=== PATIENT | female | born 1985 | race Caucasian/White ===

== ENCOUNTER 2020-02-22 04:25 | Day surgery (SDC) | payer OTHER ==
[2020-02-19 11:52] VITALS: BMI 22.0
[2020-02-22] MEDS ORDERED: MIDAZOLAM HCL 2 MG/2 ML SINGLE DOSE VIAL ONE (14:07)
[2020-02-22] MEDS ORDERED: DEXAMETHASONE SOD PHOSPHATE 4 MG/1 ML VIAL ONE (14:09)
[2020-02-22] MEDS ORDERED: KETOROLAC TROMETHAMINE 30 MG/1 ML VIAL ONE (14:09)
[2020-02-22] MEDS ORDERED: LIDOCAINE HCL/PF 2% SDV 5ML VIAL ONE (14:09)
[2020-02-22] MEDS ORDERED: PROPOFOL 20 ML ONE ×2 (14:09)
[2020-02-22] MEDS ORDERED: GLYCOPYRROLATE 0.2 MG/1 ML VIAL ONE (14:15)
[2020-02-22] MEDS ORDERED: IBUPROFEN 400 MG TABLET (FP) PO PRN (15:16)
[2020-02-22] MEDS ORDERED: ACETAMINOPHEN 325 MG TABLET (FP) PO PRN (15:16)
[2020-02-22] MEDS ORDERED: ONDANSETRON 4 MG/2 ML VIAL IVPUSH PRN (15:29)
[2020-02-22] MEDS ORDERED: oxyCODONE HCL 5 MG TABLET PO PRN ×2 (15:29)
[2020-02-22] MEDS ORDERED: LACTATED RINGERS SOLUTION 1,000 ML IV SCH (15:30)
[2020-02-22 18:31] VITALS: BP 110/81; PULSE 84; TEMP 98
[2020-02-23] MEDS ORDERED: ENOXAPARIN NA (PORCINE) 30 MG/0.3 ML DISP.SYRIN SQ SCH (10:00)
== END 2020-02-22 18:20 | disposition home or self-care (01) ==
LOC: JASU-SURG 04:25
PROVIDERS: ATTEND Obstetrics & Gynecology
PROC: 0UJD8ZZ Inspection of Uterus and Cervix, Via Natural or Artificial Opening Endoscopic (ICD-10-PCS; 2020-02-22)
PROC: 0UB97ZX Excision of Uterus, Via Natural or Artificial Opening, Diagnostic (ICD-10-PCS; principal; 2020-02-22 14:00)
PROC: 0UDB7ZX Extraction of Endometrium, Via Natural or Artificial Opening, Diagnostic (ICD-10-PCS; 2020-02-22 14:00)
DX: N92.0 Excessive and frequent menstruation with regular cycle (principal); N84.0 Polyp of corpus uteri
CPT/HCPCS: 36415; 84703; 86922; 88305-TC; 94760

== ENCOUNTER 2021-03-04 20:20 | Emergency (ER) | payer OTHER ==
[2021-03-04 20:26] VITALS: BP 118/78; TEMP 98; BMI 24.2
[2021-03-04] MEDS ORDERED: CEPHALEXIN MONOHYDRATE 500 MG CAPSULE (UD) PO ONE (22:28)
[2021-03-04 22:44] LABS: PH,URINE 6.5 (5.0-8.0); URINE APPEARANCE CLEAR; URINE BILIRUBIN NEGATIVE (NEGATIVE); URINE COLOR YELLOW; URINE GLUCOSE (UA) NEGATIVE (NEGATIVE); URINE KETONE NEGATIVE (NEGATIVE); URINE LEUK ESTERASE NEGATIVE (NEGATIVE); URINE NITRITE NEGATIVE (NEGATIVE); URINE PROTEIN NEGATIVE (NEGATIVE); URINE UROBILINOGEN 0.2 mg/dL (0.2-1.0)
[2021-03-04] MEDS ORDERED: CEPHALEXIN MONOHYDRATE 500 MG CAPSULE (UD) ONE (22:47)
[2021-03-04 23:30] VITALS: PULSE 68
== END 2021-03-04 23:31 | disposition home or self-care (01) ==
LOC: JER 20:20
DX: R30.0 Dysuria (principal)
CPT/HCPCS: 81003; 82962; 87077; 87086; 99283-25

== ENCOUNTER 2021-08-05 08:42 | Inpatient (IN) | payer BC, OTHER ==
[2021-08-05] MEDS: DEXTROSE 5%-LACTATED RINGERS 1,000 ML IV SCH (15:30)
[2021-08-05 15:50] VITALS: BMI 27.2
[2021-08-05 15:51] LABS: BASO % 0.4 % (0-2.0); HEMATOCRIT 39.4 % (32.4-45.2); HEMOGLOBIN 12.8 GM/dL (10.7-15.3); LYMPH % 7.3 % (8-40); MCH 28.1 pg (25.7-33.7); MCHC 32.5 g/dl (32.0-36.0); MEAN CELL VOLUME 86.4 fl (80-96); MEAN PLT VOLUME 10.6 fl (7.5-11.1); MONO % 4.7 % (3.8-10.2); NEUT % 87.6 % (42.8-82.8); PLATELET COUNT 162 10^3/uL (134-434); RBC 4.55 M/mm3 (3.60-5.2); RDW 13.7 % (11.6-15.6); WHITE BLOOD COUNT 11.7 K/mm3 (4.0-10.0)
[2021-08-05 15:58] LABS: INR 0.93 (0.83-1.09); PROTHROMBIN TIME (PATIENT) 10.7 SEC (9.7-13.0)
[2021-08-05] MEDS ORDERED: PENICILLIN G POTASSIUM 5,000,000 (5Mm) UNIT VIAL IVPB ONE (16:00)
[2021-08-05 16:01] LABS: ACTIVATED PTT 26.8 SECONDS (25.2-36.5)
[2021-08-05 16:08] LABS: CALCIUM 8.6 mg/dL (8.5-10.1)
[2021-08-05 16:09] LABS: BLOOD UREA NITROGEN 11.9 mg/dL (7-18)
[2021-08-05 16:12] LABS: CREATININE 0.8 mg/dL (0.55-1.3)
[2021-08-05] MEDS ORDERED: FENTANYL/BUPIVACAINE/NS/PF - PCEA - 50 ML DISP.SYRIN EP ONE ×2 (16:15→20:34)
[2021-08-05] MEDS: FENTANYL/BUPIVACAINE/NS/PF - PCEA - 50 ML DISP.SYRIN EP SCH ×2 (16:50→20:35)
[2021-08-05 17:03] LABS: HIV INTERPRETATION NEGATIVE (NEGATIVE)
[2021-08-05] MEDS ORDERED: NALOXONE HCL 0.4 MG/ML VIAL IVPUSH PRN (17:12)
[2021-08-05] MEDS: PENICILLIN G POTASSIUM 2,500,000 UNIT in SODIUM CHLORIDE 100 ML IVPB SCH (20:30)
[2021-08-05] MEDS ORDERED: ELECTROLYTE-148 SOLN 1,000 ML IV SCH (21:15)
[2021-08-05] MEDS ORDERED: OXYTOCIN 30 UNITS in 0.9% NS 30 UNIT/500 ML INFUS.BAG IVPB SCH (21:40)
[2021-08-05] MEDS ORDERED: ACETAMINOPHEN 325 MG TABLET (FP) PO ONE (22:55)
[2021-08-05] MEDS ORDERED: ACETAMINOPHEN 325 MG TABLET (FP) ONE (23:01)
[2021-08-05] MEDS ORDERED: OXYTOCIN 30 UNITS in 0.9% NS 30 UNIT/500 ML INFUS.BAG IVPB ONE (23:01)
[2021-08-06] MEDS ORDERED: OXYTOCIN 20 UNITS in 0.9% NS 20 UNIT/1,000 ML INFUS.BAG IV ONE (00:43)
[2021-08-06] MEDS ORDERED: FENTANYL/BUPIVACAINE/NS/PF - PCEA - 50 ML DISP.SYRIN EP ONE (00:43)
[2021-08-06] MEDS: PENICILLIN G POTASSIUM 2,500,000 UNIT in SODIUM CHLORIDE 100 ML IVPB SCH ×3 (04:00→07:55)
[2021-08-06] MEDS ORDERED: OXYTOCIN 20 UNITS in 0.9% NS 20 UNIT/1,000 ML INFUS.BAG IV SCH ×2 (04:20→04:45)
[2021-08-06] MEDS ORDERED: LIDOCAINE HCL 1% PRESERVATIVE FREE - 30ML VIAL ONE (04:22)
[2021-08-06] MEDS ORDERED: BISACODYL 10 MG SUPP.RECT RC PRN (04:36)
[2021-08-06] MEDS ORDERED: BENZOCAINE 20% 57 GM BOTTLE TP PRN (04:36)
[2021-08-06] MEDS ORDERED: oxyCODONE HCL 5 MG TABLET PO PRN (04:36)
[2021-08-06] MEDS ORDERED: WITCH HAZEL 50% (TUCKS) 40 PAD/JAR PAD TP PRN (04:36)
[2021-08-06] MEDS ORDERED: METHYLERGONOVINE MALEATE 0.2 MG/1 ML AMP IM PRN (04:36)
[2021-08-06] MEDS ORDERED: BENZOCAINE 28 GM HEMORRHOIDAL OINTMENT TP PRN (04:36)
[2021-08-06] MEDS ORDERED: ACETAMINOPHEN 325 MG TABLET (FP) PO PRN (04:36)
[2021-08-06 04:52] LABS: CORD BASE EXCESS -11.1 mmol/L (0-2); CORD HCO3 18.9 mmHg (20-29); CORD PCO2 58.3 mmHg (30-78); CORD pH 7.129 (7.14-7.44)
[2021-08-06 04:55] LABS: CORD HCO3 17.5 mmHg (20-29); CORD PCO2 49.3 mmHg (30-78); CORD pH 7.169 (7.14-7.44)
[2021-08-06] MEDS: IBUPROFEN 600 MG TABLET (FP) PO PRN ×4 (07:21→21:30)
[2021-08-06] MEDS: FERROUS SO4 325 MG TABLET (FP) PO SCH ×3 (08:48→17:15)
[2021-08-06] MEDS: PRENATAL VITAMINS W/ FOLIC ACID TABLET (FP) PO SCH (09:16)
[2021-08-06] MEDS: DEXTROSE 5%-LACTATED RINGERS 1,000 ML IV SCH (15:21)
[2021-08-06 18:12] LABS: SARS-CoV-2 NAA Not Detected (Not Detected)
[2021-08-06] MEDS: FENTANYL/BUPIVACAINE/NS/PF - PCEA - 50 ML DISP.SYRIN EP SCH (19:02)
[2021-08-07 08:53] LABS: BASO % 0.1 % (0-2.0); EOS % 0.1 % (0-4.5); LYMPH % 15.4 % (8-40); MCH 29.2 pg (25.7-33.7); MCHC 33.4 g/dl (32.0-36.0); MEAN CELL VOLUME 87.4 fl (80-96); MEAN PLT VOLUME 9.5 fl (7.5-11.1); MONO % 6.3 % (3.8-10.2); NEUT % 78.1 % (42.8-82.8); PLATELET COUNT 135 10^3/uL (134-434); RBC 3.09 M/mm3 (3.60-5.2); RDW 14.2 % (11.6-15.6); WHITE BLOOD COUNT 12.1 K/mm3 (4.0-10.0)
[2021-08-07] MEDS: FERROUS SO4 325 MG TABLET (FP) PO SCH ×3 (08:58→18:35)
[2021-08-07] MEDS: IBUPROFEN 600 MG TABLET (FP) PO PRN ×3 (08:58→19:15)
[2021-08-07] MEDS: PRENATAL VITAMINS W/ FOLIC ACID TABLET (FP) PO SCH (09:00)
[2021-08-07] MEDS ORDERED: SENNOSIDES/DOCUSATE COMBO (SENNA PLUS) TABLET (UD) PO PRN (22:00)
[2021-08-08 08:47] VITALS: BP 120/68; PULSE 58; TEMP 98.4
[2021-08-08] MEDS: PRENATAL VITAMINS W/ FOLIC ACID TABLET (FP) PO SCH (09:04)
[2021-08-08] MEDS: FERROUS SO4 325 MG TABLET (FP) PO SCH ×2 (09:05→11:37)
[2021-08-08] MEDS: IBUPROFEN 600 MG TABLET (FP) PO PRN (09:05)
[2021-08-08] MEDS ORDERED: LEVOTHYROXINE NA 75 MCG TABLET (FP) PO ONE (11:30)
[2021-08-09] MEDS ORDERED: LEVOTHYROXINE NA 75 MCG TABLET (FP) PO SCH (07:00)
== END 2021-08-08 13:00 | disposition home or self-care (01) | DRG 807 ==
LOC: JDEL 08:42 → JLDR 14:18 → J3W 08-06 06:06
PROVIDERS: ADMIT Obstetrics & Gynecology; ATTEND Obstetrics & Gynecology
PROC: 10907ZC Drainage of Amniotic Fluid, Therapeutic from Products of Conception, Via Natural or Artificial Opening (ICD-10-PCS; 2021-08-05)
PROC: 10E0XZZ Delivery of Products of Conception, External Approach (ICD-10-PCS; principal; 2021-08-06)
PROC: 0W8NXZZ Division of Female Perineum, External Approach (ICD-10-PCS; 2021-08-06)
DX: O90.81 Anemia of the puerperium (principal); Z37.0 Single live birth; O77.0 Labor and delivery complicated by meconium in amniotic fluid; O69.81X0 Labor and delivery complicated by cord around neck, without compression, not applicable or unspecified; Z3A.38 38 weeks gestation of pregnancy
CPT/HCPCS: 36415; 36600; 59025; 59409; 80048; 82803; 82962; 85025; 85610; 85730; 86780; 86850; 86900; 86901; 87389; C9803-CS; U0003; U0005

== ENCOUNTER → 2022-08-27 | Emergency (ER) | payer BC, OTHER ==
[~2022-08-27] MED LIST: ACETAMINOPHEN 1000 MG/100 ML BAG IVPB ONE; ACETAMINOPHEN INJECTION 100 ML IVPB ONE; FAMOTIDINE 20 MG/50 ML IVPB 20 MG/50 ML MG IVPB ONE; LACTATED RINGERS SOLUTION 1000 ML INFUS.BAG IV ONE; MAG HYDROX/AL HYDROX/SIMETH 30 ML UNIT-DOSE CUP ONE; MAG HYDROX/AL HYDROX/SIMETH 30 ML UNIT-DOSE CUP PO ONE; POTASSIUM CHLORIDE ORAL LIQUID 20 MEQ/15 ML ONE; POTASSIUM CHLORIDE ORAL LIQUID 20 MEQ/15 ML PO ONE
[2022-08-27 12:10] VITALS: RESP 18; TEMP 98.1; BMI 24.8
[2022-08-27 15:24] LABS: EPI CELLS 24 /uL (0-25.1); HYALINE CASTS 0 /uL (0-3.1); URINE APPEARANCE CLEAR; URINE BACTERIA 42 /uL (0-1359); URINE BILIRUBIN NEGATIVE (NEGATIVE); URINE COLOR YELLOW; URINE GLUCOSE (UA) NEGATIVE (NEGATIVE); URINE KETONE 2+ (NEGATIVE); URINE LEUK ESTERASE TRACE (NEGATIVE); URINE NITRITE NEGATIVE (NEGATIVE); URINE PROTEIN NEGATIVE (NEGATIVE); URINE RBC 24 /uL (0-23.9); URINE UROBILINOGEN 0.2 mg/dL (0.2-1.0); URINE WBC 19 /uL (0-25.8)
[2022-08-27 15:28] LABS: BASO % 0.1 % (0-2.0); EOS % 0.1 % (0-4.5); HEMATOCRIT 37.2 % (32.4-45.2); LYMPH % 6.4 % (8-40); MCH 28.5 pg (25.7-33.7); MCHC 34.9 g/dl (32.0-36.0); MEAN CELL VOLUME 81.7 fl (80-96); MEAN PLT VOLUME 8.8 fl (7.5-11.1); MONO % 4.6 % (3.8-10.2); NEUT % 88.8 % (42.8-82.8); PLATELET COUNT 249 10^3/uL (134-434); RBC 4.56 M/mm3 (3.60-5.2); RDW 13.4 % (11.6-15.6); WHITE BLOOD COUNT 13.4 K/mm3 (4.0-10.0)
[2022-08-27 15:33] LABS: POTASSIUM 3.3 mmol/L (3.5-5.1)
[2022-08-27 15:34] VITALS: BP 127/63; PULSE 76
[2022-08-27 15:37] LABS: CALCIUM 9.1 mg/dL (8.5-10.1)
[2022-08-27 15:38] LABS: ALBUMIN 3.5 g/dl (3.4-5.0); BLOOD UREA NITROGEN 5.9 mg/dL (7-18); MAGNESIUM 1.8 mg/dL (1.8-2.4)
[2022-08-27 15:41] LABS: BILIRUBIN,TOTAL 0.4 mg/dL (0.2-1); CREATININE 0.4 mg/dL (0.55-1.3)
[2022-08-27 15:42] LABS: TOT PROT 7.5 g/dl (6.4-8.2)
== END | disposition home or self-care (01) ==
LOC: JER 12:01
PROC: 3E033GC Introduction of Other Therapeutic Substance into Peripheral Vein, Percutaneous Approach (ICD-10-PCS; principal; 2022-08-27)
PROC: 3E033NZ Introduction of Analgesics, Hypnotics, Sedatives into Peripheral Vein, Percutaneous Approach (ICD-10-PCS; 2022-08-27)
DX: O23.91 Unspecified genitourinary tract infection in pregnancy, first trimester (principal); Z3A.13 13 weeks gestation of pregnancy; Z20.822 Contact with and (suspected) exposure to COVID-19
CPT/HCPCS: 0241U-QW; 36415; 76801-TC; 80053; 81003; 83605; 83690; 83735; 84439; 84443; 84702; 85025; 86850; 86900; 86901; 87086; 93005; 93010; 99284-25

== ENCOUNTER 2023-02-10 08:10 | Inpatient (IN) | payer BC, OTHER ==
[2023-02-10] MEDS ORDERED: OXYTOCIN 10 UNITS/ML VIAL ONE (08:36)
[2023-02-10] MEDS ORDERED: MISOPROSTOL 200 MCG TABLET ONE (08:49)
[2023-02-10] MEDS ORDERED: METHYLERGONOVINE MALEATE 0.2 MG/1 ML AMP IM PRN (09:02)
[2023-02-10] MEDS ORDERED: WITCH HAZEL 50% (TUCKS) 40 PAD/JAR PAD TP PRN (09:08)
[2023-02-10] MEDS ORDERED: BENZOCAINE 20% 57 GM BOTTLE TP PRN (09:08)
[2023-02-10] MEDS ORDERED: OXYTOCIN 20 UNITS in 0.9% NS 20 UNIT/1,000 ML INFUS.BAG IV SCH (09:15)
[2023-02-10] MEDS ORDERED: MISOPROSTOL 200 MCG TABLET PR SCH (09:15)
[2023-02-10] MEDS ORDERED: AMPICILLIN - 2 GM in SODIUM CHLORIDE 100 ML IVPB ONE (09:30)
[2023-02-10] MEDS ORDERED: OXYTOCIN 10 UNITS/ML VIAL IM ONE (09:30)
[2023-02-10 09:59] VITALS: BMI 25.6
[2023-02-10] MEDS: LEVOTHYROXINE NA 88 MCG TABLET (FP) PO SCH (10:29)
[2023-02-10 10:36] LABS: BASO % 0.2 % (0-2.0); HEMATOCRIT 39.6 % (32.4-45.2); HEMOGLOBIN 13.1 GM/dL (10.7-15.3); LYMPH % 5.6 % (8-40); MCH 27.6 pg (25.7-33.7); MCHC 33.2 g/dl (32.0-36.0); MEAN CELL VOLUME 83.2 fl (80-96); MEAN PLT VOLUME 10.3 fl (7.5-11.1); MONO % 4.4 % (3.8-10.2); NEUT % 89.8 % (42.8-82.8); PLATELET COUNT 163 10^3/uL (134-434); RBC 4.76 M/mm3 (3.60-5.2); RDW 14.4 % (11.6-15.6); WHITE BLOOD COUNT 15.8 K/mm3 (4.0-10.0)
[2023-02-10 10:44] LABS: POTASSIUM 4.1 mmol/L (3.5-5.1)
[2023-02-10 10:46] LABS: CALCIUM 8.4 mg/dL (8.5-10.1)
[2023-02-10 10:47] LABS: BLOOD UREA NITROGEN 8.1 mg/dL (7-18)
[2023-02-10 10:48] LABS: INR 0.94 (0.83-1.09); PROTHROMBIN TIME (PATIENT) 10.9 SEC (9.7-13.0)
[2023-02-10 10:50] LABS: CREATININE 0.6 mg/dL (0.55-1.3)
[2023-02-10] MEDS ORDERED: OXYTOCIN 20 UNITS in 0.9% NS 20 UNIT/1,000 ML INFUS.BAG IV ONE (11:21)
[2023-02-10] MEDS ORDERED: IBUPROFEN 600 MG TABLET (FP) PO ONE (11:32)
[2023-02-10] MEDS: PRENATAL VITAMINS W/ FOLIC ACID TABLET (FP) PO SCH (11:32)
[2023-02-10] MEDS: IBUPROFEN 600 MG TABLET (FP) PO PRN ×3 (11:44→17:06)
[2023-02-10] MEDS: ACETAMINOPHEN 325 MG TABLET (FP) PO PRN ×2 (15:02→20:11)
[2023-02-10 22:09] VITALS: RESP 18
[2023-02-11] MEDS: LEVOTHYROXINE NA 88 MCG TABLET (FP) PO SCH (06:25)
[2023-02-11] MEDS: IBUPROFEN 600 MG TABLET (FP) PO PRN ×2 (09:30→20:36)
[2023-02-11] MEDS: PRENATAL VITAMINS W/ FOLIC ACID TABLET (FP) PO SCH (09:30)
[2023-02-11 09:37] LABS: BASO % 0.2 % (0-2.0); EOS % 0.1 % (0-4.5); HEMATOCRIT 34.9 % (32.4-45.2); HEMOGLOBIN 11.8 GM/dL (10.7-15.3); MCHC 33.9 g/dl (32.0-36.0); MEAN CELL VOLUME 82.6 fl (80-96); MEAN PLT VOLUME 9.8 fl (7.5-11.1); MONO % 5.5 % (3.8-10.2); NEUT % 74.2 % (42.8-82.8); PLATELET COUNT 144 10^3/uL (134-434); RBC 4.22 M/mm3 (3.60-5.2); RDW 14.4 % (11.6-15.6); WHITE BLOOD COUNT 8.8 K/mm3 (4.0-10.0)
[2023-02-11] MEDS ORDERED: DIPHTH,PERTUSS(ACELL),TET 0.5 ML DISP.SYRIN IM ONE (10:00)
[2023-02-11] MEDS ORDERED: FLU VACCINE (FLULAVAL) PF 60 MCG/0.5 ML SYRINGE 2023-2024 IM ONE ×2 (10:00→11:00)
[2023-02-11] MEDS ORDERED: FAMOTIDINE 20 MG TABLET PO ONE (21:15)
[2023-02-12] MEDS: LEVOTHYROXINE NA 88 MCG TABLET (FP) PO SCH (06:16)
[2023-02-12 09:03] VITALS: BP 124/72; PULSE 70; TEMP 98
[2023-02-12] MEDS: PRENATAL VITAMINS W/ FOLIC ACID TABLET (FP) PO SCH (09:32)
[2023-02-12] MEDS: IBUPROFEN 600 MG TABLET (FP) PO PRN (09:32)
== END 2023-02-12 13:20 | disposition home or self-care (01) | DRG 807 ==
LOC: JLDR 08:10 → J3W 12:00
PROVIDERS: ADMIT Obstetrics & Gynecology; ATTEND Obstetrics & Gynecology
PROC: 10E0XZZ Delivery of Products of Conception, External Approach (ICD-10-PCS; principal; 2023-02-10)
DX: O99.284 Endocrine, nutritional and metabolic diseases complicating childbirth (principal); Z37.0 Single live birth; O99.824 Streptococcus B carrier state complicating childbirth; E03.9 Hypothyroidism, unspecified; Z3A.38 38 weeks gestation of pregnancy
CPT/HCPCS: 36415; 80048; 85025; 85610; 85730; 86850; 86900; 86901; 90686; 90715; G0008